=== PATIENT | male | born 1950 | race Caucasian/White ===

== ENCOUNTER 2020-03-31 14:04 | Emergency (ER) | payer MEDICARE ==
--- NOTE | 2020-03-31 14:22 | ER Document Report ---
ED Medical Screen (RME) - General Chief Complaint: Skin Problem Stated Complaint: SKIN SORES Time Seen by Provider: 03/31/20 14:13 Mode of Arrival: Ambulatory Information source: Patient Notes: 69-year-old male presented to ED for a painful swollen area to the back of the right thigh. He states a week ago he felt something to the back of his leg had his look at it and she states it looks like swollen veins. He states last night it started burning and is been in a lot more pain and now it is more swollen than it was. He states he does not know what is done he does not know anything that is happened that would cause this. He is alert oriented respirations regular nonlabored speaking in full sentences. He does have a history of COPD he has a left total knee replacement he has spinal fusion. He has a nerve stimulator in his back and bilateral sacroiliac joint fusions. Patient is alert oriented respirations regular nonlabored speaking in full sentences walks with a even gait but states this area is painful. I have ordered blood urine and an ultrasound to the area. I have greeted and performed a rapid initial assessment of this patient. A comprehensive ED assessment and evaluation of the patient, analysis of test results and completion of medical decision making process will be conducted by an additional ED providers. Physical Exam - Vital signs Vitals: Temp Pulse Resp BP Pulse Ox 98.2 F 99 18 178/94 H 98 03/31/20 14:03/31/20 14:03/31/20 14:03/31/20 14:03/31/20 14:09 Course - Vital Signs Vital signs: Temp Pulse Resp BP Pulse Ox 98.2 F 99 18 178/94 H 98 03/31/20 14:09 03/31/20 14:03/31/20 14:03/31/20 14:03/31/20 14:09
[2020-03-31 15:06] LABS: ABSOLUTE EOSINOPHILS # (AUTO) 0.1 10^3/uL (0.0-0.6); ABSOLUTE LYMPHOCYTES (AUTO) 0.9 10^3/uL (0.5-4.7); ABSOLUTE MONOCYTES (AUTO) 0.5 10^3/uL (0.1-1.4); ABSOLUTE NEUT (AUTO) 4.2 10^3/uL (1.7-8.2); BASOPHILS % (AUTO) 0.5 % (0-2); EOSINOPHILS % (AUTO) 2.3 % (0-6); HEMATOCRIT 48.6 % (37.9-51.0); HEMOGLOBIN 16.6 g/dL (13.5-17.0); LYMPHOCYTES % (AUTO) 15.3 % (13-45); MEAN CORPUSCULAR HEMOGLOBIN 27.7 pg (27.0-33.4); MEAN CORPUSCULAR HGB CONC 34.2 g/dL (32.0-36.0); MEAN CORPUSCULAR VOLUME 81 fl (80-97); MONOCYTES % (AUTO) 8.6 % (3-13); PLATELET COUNT 148 10^3/uL (150-450); RED BLOOD COUNT 5.99 10^6/uL (4.35-5.55); RED CELL DISTRIBUTION WIDTH 18.1 % (11.5-14.0); SEGMENTED NEUTROPHILS % (AUTO) 73.3 % (42-78); TOTAL CELLS COUNTED % (AUTO) 100 %; WHITE BLOOD COUNT 5.7 10^3/uL (4.0-10.5)
[2020-03-31 15:08] LABS: APPEARANCE,URINE CLEAR; BILIRUBIN,URINE NEGATIVE (NEGATIVE); COLOR,URINE YELLOW; GLUCOSE, URINE NEGATIVE (NEGATIVE); KETONES,URINE NEGATIVE (NEGATIVE); LEUKOCYTE ESTERASE,URINE NEGATIVE (NEGATIVE); NITRITE,URINE NEGATIVE (NEGATIVE); PROTEIN,URINE NEGATIVE (NEGATIVE); UROBILINOGEN,URINE NEGATIVE mg/dL (<2.0)
[2020-03-31 15:25] LABS: ALBUMIN 4.8 g/dL (3.5-5.0); ALKALINE PHOSPHATASE 59 U/L (38-126); ANION GAP 8 (5-19); ASPARTATE AMINO TRANSFERASE 31 U/L (17-59); BILIRUBIN,DIRECT 0.1 mg/dL (0.0-0.4); BILIRUBIN,TOTAL 0.6 mg/dL (0.2-1.3); BLOOD UREA NITROGEN 15 mg/dL (7-20); C-REACTIVE PROTEIN 12.4 mg/L (<10.0); CALCIUM 9.2 mg/dL (8.4-10.2); CARBON DIOXIDE 28 mmol/L (22-30); CHLORIDE 100 mmol/L (98-107); GLUCOSE 113 mg/dL (75-110); POTASSIUM 4.1 mmol/L (3.6-5.0); TOTAL PROTEIN 7.6 g/dL (6.3-8.2)
[2020-03-31 15:47] LABS: ERYTHROCYTE SEDIMENTATION RATE 2 mm/hr (0-20)
--- NOTE | 2020-03-31 16:03 | RADIOLOGY REPORT (SQ) ---
EXAM DESCRIPTION: U/S EXTREMITY NONVASCULAR LTD IMAGES COMPLETED DATE/TIME: 03/31/2020 3:36 pm REASON FOR STUDY: Right upper leg COMPARISON: None. TECHNIQUE: Dynamic and static grayscale images acquired of the localized site of clinical concern an d recorded on PACS. Additional selected color Doppler images recorded. SITE OF CONCERN: Right upper posterior thigh LIMITATIONS: None. FINDINGS: Ultrasound scanning of the patient's area of concern at the right upper thigh was performe d. Small fluid collections are noted just underneath the skin measuring 11 x 2 x 9 mm and 11 x 3 x 1 3 mm, respectively. No internal flow was noted on Doppler images. Otherwise, no discrete fluid marlon ection was identified within the deep soft tissues or visualized musculature. IMPRESSION: Small fluid collections just underneath the skin at the patient's area of concern at the right upper thigh. Please correlate with direct visualization. TECHNICAL DOCUMENTATION: JOB ID: [id number] [employer]- All Rights Reserved Reading location - IP/workstation name: [email or web address]
--- NOTE | 2020-03-31 17:29 | ER Document Report ---
ED Skin Rash/Insect Bite/Abscs - General Chief Complaint: Skin Problem Stated Complaint: SKIN SORES Time Seen by Provider: 03/31/20 14:13 Mode of Arrival: Ambulatory Information source: Patient Notes: 69-year-old man presents to the emergency department with a complaint of pain and burning involving the posterior aspect of the right thigh. He states that he took a flight from the [facility], began to have some irritation sensation in the posterior right thigh. He had his look at it and was told it looked like varicose veins. Over the past day, the pain has intensified and he has developed blisters along the area of the posterior thigh. He denies any other associated symptoms. Past Medical History - General Information source: Patient - Social History Smoking Status: Unknown if Ever Smoked Family History: Reviewed & Not Pertinent Review of Systems - Review of Systems Notes: Constitutional: Negative for fever. HENT: Negative for sore throat. Eyes: Negative for visual changes. Cardiovascular: Negative for chest pain. Respiratory: Negative for shortness of breath. Gastrointestinal: Negative for abdominal pain, vomiting or diarrhea. Genitourinary: Negative for dysuria. Musculoskeletal: Negative for back pain. Skin: + Rash anterior right thigh. Neurological: Negative for headaches, weakness or numbness. 10 point ROS negative except as marked above and in HPI. Physical Exam - Vital signs Vitals: Temp Pulse Resp BP Pulse Ox 98.2 F 99 18 178/94 H 98 03/31/20 14:09 03/31/20 14:09 03/31/20 14:09 03/31/20 14:09 03/31/20 14:09 - Notes Notes: PHYSICAL EXAMINATION: Physical Exam: General: Well-nourished well-developed in no acute distress HEENT: NC/AT, pupils equal round and reactive to light, MM moist,nares clear, oropharynx clear, airway patent Neck: supple, no adenopathy, no masses. Good range of motion Lungs: clear, no wheezing, no rales no rhonchi CVS: Regular rate and rhythm no murmur gallop or rub Abdomen: Soft, active, nontender, no masses, no hepatosplenomegaly Ext: No edema, clubbing or cyanosis. Neuro: Alert and responsive, moving all 4 extremities on command, cranial nerves intact, no focal findings Skin: Posterior right thigh with areas of blisters and erythema with tenderness to touch. PSYCH: Normal mood, normal affect. Course - Re-evaluation Re-evalutation: 03/31/20 17:34 Patient was diagnosed with shingles, posterior right thigh crops of vesicles with redness and pain. - Vital Signs Vital signs: Temp Pulse Resp BP Pulse Ox 98.1 F 90 17 160/87 H 97 03/31/20 18:19 03/31/20 18:19 03/31/20 18:19 03/31/20 18:19 03/31/20 18:19 - Laboratory Result Diagrams: 03/31/20 14:47 03/31/20 14:47 Laboratory results interpreted by me: 03/31/20 03/31/20 14:47 14:47 RBC 5.99 H RDW 18.1 H Plt Count 148 L Sodium 135.6 L Glucose 113 H C-Reactive Protein 12.4 H 03/31/20 17:35 I have reviewed laboratory data and used this information for the treatment decisions regarding the patient. - Diagnostic Test Radiology reviewed: Pending, Image reviewed, Reports reviewed Radiology results interpreted by me: 03/31/20 17:36 Ultrasound the posterior right thigh: Areas of small fluid collection beneath the skin on the right thigh. Correlate with blisters and vesicles. Discharge - Discharge Clinical Impression: Herpes zoster Qualifiers: Herpes zoster complications: without complications Qualified Code(s): B02.9 - Zoster without complications Condition: Good Disposition: HOME, SELF-CARE Instructions: Acetaminophen, Shingles ([facility]) Additional Instructions: You were seen in the emergency department today and diagnosed with shingles involving the back of the right thigh. You are given prescriptions for Valtrex, prednisone, Naprosyn and information regarding shingles. This outbreak should improve with medications over the next 3 to 4 days. Please take the medications as prescribed. You may follow-up with primary care doctor as needed. If your symptoms are worsening or if you have other concerns you may return to the emergency department for pain further evaluation and treatment HOME CARE INSTRUCTIONS & INFORMATION: Thank you for choosing us for your medical needs. We hope you're satisfied with the care you received. After you leave, you must properly care for your problem and, at the same time, observe its progress. Any condition can change. Some illnesses can change rapidly over hours or days. If your condition worsens, return to the Emergency Department or see your physician promptly. ABOUT YOUR X-RAYS AND EKG'S: If you had an EKG or X-rays taken, they have been read by the Emergency Physician. The X-rays and EKG's will also be read by a Radiologist or Geophysical Drafter within 24 hours. If discrepancies are noted, you will be notified by telephone. Please be certain the ED has a correct telephone number & address where you can be reached. Also, realize that some fractures or abnormalities do not show up on initial X-rays. If your symptoms continue, see your physician. ABOUT YOUR LABORATORY TEST: If you had laboratory tests, the results have been reviewed by the Emergency Physician. Some test results (for example cultures) may not be available for several days. You will be contacted if any test result shows you need additional treatment. Please be certain the ED has a correct telephone number and address where you can be reached. ABOUT YOUR MEDICATIONS: You will receive instructions on how to take your medicine on the prescription label you receive. Additional information may be provided by the Pharmacy. If you have questions afterwards, call the ED for clarification or further instructions. Some prescribed medications may cause drowsiness. Do not perform tasks such as driving a car or operating machinery without consulting your Pharmacist. If you feel you need a refill of pain medication, your condition will need re-evaluation. Please do not call for a refill of any medication. ABOUT YOUR SIGNATURE: Signature of this document acknowledges to followin. Understanding that you received emergency treatment and that you may be released before al medical problems are known or treated. Please be certain the ED has a correct phone number & address where you can be reached. 2. Acknowledgement that you will arrange for follow-up care as recommended. 3. Authorization for the Emergency Physician to provide information to your follow-up Physician in order to maximize your care. AT ANY TIME, IF YOUR SYMPTOMS CHANGE SIGNIFICANTLY OR WORSEN OR YOU DEVELOP NEW SYMPTOMS, RETURN TO THE EMERGENCY DEPARTMENT IMMEDIATELY FOR RE-EVALUATION. OUR GOAL IS TO PROVIDE EXCELLENT MEDICAL CARE! WE HOPE THAT WE HAVE MET YOUR EXPECTATIONS DURING YOUR EMERGENCY DEPARTMENT VISIT AND THAT YOU FEEL YOU HAVE RECEIVED EXCELLENT CARE! Prescriptions: Prednisone [Deltasone 20 mg Tablet] 1 tab PO BID 5 Days #10 tablet Naproxen [Naprosyn] 500 mg PO BID #20 tablet Valacyclovir HCl [Valtrex 500 Mg Tablet] 1,000 mg PO TID #21 tablet
[2020-03-31] MEDS ORDERED: HYDROCODONE/ACETAMINOPHEN 5-325 MG (6 TAB/ER DISP) PO PRN (17:51)
[2020-03-31 18:22] VITALS: BP 160/87
== END 2020-03-31 18:25 | disposition home or self-care (01) ==
LOC: ER 14:04
DX: B02.9 Zoster without complications (principal); M79.651 Pain in right thigh
CPT/HCPCS: 36415; 76882; 80053; 81001; 85025; 85652; 86140; 87040; 99284